=== PATIENT | female | born 1990 | race African-American/Black ===

== ENCOUNTER 2024-08-19 16:09 | Emergency (ER) | payer OTHER ==
[~2024-08-19] VITALS: Ht 165.1 cm; Wt 93.0 kg
[~2024-08-19 16:09] MED LIST: AMOXICILLIN500 MG PO; CLARITIN10 M1 PO; MULTIVITAMI1 OR; NAPROSYN375 MG OR; NO HOME MEDS
[2024-08-19 16:26] VITALS: BP 166/106
[2024-08-19 16:30] VITALS: BP 165/110
[2024-08-19] MEDS ORDERED: KETOROLAC TROMETHAMINE 30 MG/ML SDV IM ONE (16:35)
[2024-08-19 16:45] VITALS: BP 145/102
[2024-08-19] MEDS ORDERED: FLEXERIL5 M1 PO (18:57)
[2024-08-19] MEDS ORDERED: NAPROXEN500 MG PO (18:57)
[2024-08-19 19:25] VITALS: BP 165/89
== END 2024-08-19 19:25 | disposition home or self-care (01) | DRG 605 ==
LOC: ED 16:09
DX: S80.02XA Contusion of left knee, initial encounter (principal); S60.011A Contusion of right thumb without damage to nail, initial encounter; S39.012A Strain of muscle, fascia and tendon of lower back, initial encounter; I10 Essential (primary) hypertension; J45.909 Unspecified asthma, uncomplicated; V49.40XA Driver injured in collision with unspecified motor vehicles in traffic accident, initial encounter